=== PATIENT | male | born 1955 | race Caucasian/White ===

== ENCOUNTER 2022-05-10 08:52 | Outpatient (CLI) | payer MEDICARE, BC, SELFPAY ==
[2022-05-10 12:33] LABS: Chloride* 103 mmol/L (96-114); Potassium* 4.7 mmol/L (3.6-5.1); Sodium* 137 mmol/L (135-149)
[2022-05-10 12:35] LABS: Alkaline Phosphatase* 56 U/L (40-150); Aspartate Amino Transferase* 29 U/L (12-35); Bilirubin Total* 0.6 mg/dL (0.1-1.5); Blood Urea Nitrogen* 14 mg/dL (7-30); Carbon Dioxide* 29 mmol/L (20-32); Cholesterol* 232 mg/dL (90-199); Estimated Glomerular Filt Rate 83 ml/min; Total Protein* 6.9 g/dL (6.0-8.3)
[2022-05-10 12:36] LABS: Alanine Aminotransferase* 22 U/L (4-50); Calcium* 9.2 mg/dL (8.4-10.6); Glucose* 106 mg/dL (60-115); HDL Cholesterol* 69 mg/dL (>=40); LDL Cholesterol Calculated 148 mg/dL (<100); Triglycerides* 73 mg/dL (40-149)
[2022-05-15 14:47] LABS: PSA Screen* 0.83 ng/mL (0.10-4.00)
== END 2022-05-10 08:53 | disposition home or self-care (01) ==
LOC: LKVREF 08:52
PROVIDERS: PCP Emergency Medicine; Visit Provider Emergency Medicine
DX: Z00.00 Encounter for general adult medical examination without abnormal findings (principal); E78.5 Hyperlipidemia, unspecified; R03.0 Elevated blood-pressure reading, without diagnosis of hypertension; R73.01 Impaired fasting glucose; Z12.5 Encounter for screening for malignant neoplasm of prostate
CPT/HCPCS: 80053; 80061; 84153

== ENCOUNTER 2022-06-21 11:00 | Outpatient (CLI) | payer MEDICARE, BC, SELFPAY ==
[2022-06-21 11:41] LABS: SARS Antigen* Negative (Negative)
== END 2022-06-21 11:01 | disposition home or self-care (01) ==
PROVIDERS: PCP Emergency Medicine; Visit Provider Internal Medicine
DX: Z12.11 Encounter for screening for malignant neoplasm of colon (principal); K63.5 Polyp of colon; K57.30 Diverticulosis of large intestine without perforation or abscess without bleeding
CPT/HCPCS: 45380; 87426; 88305; J2250; J3010

== ENCOUNTER 2024-12-07 14:23 | Outpatient (CLI) | payer MEDICARE, SELFPAY | END 2024-12-07 14:24 | disposition home or self-care (01) | PROVIDERS: Visit Provider Family Medicine | DX: R53.83 Other fatigue (principal); E78.5 Hyperlipidemia, unspecified; Z13.1 Encounter for screening for diabetes mellitus; Z12.5 Encounter for screening for malignant neoplasm of prostate | CPT/HCPCS: 80048; 80061; 82607; 84443; G0103 ==